=== PATIENT | female | born 1975 | race Caucasian/White ===

== ENCOUNTER 2017-07-29 07:14 | Emergency (ER) | payer BC ==
[2017-07-29 07:24] VITALS: BP 134/88
--- NOTE | 2017-07-29 09:19 | UC ---
Aly Sims Angela, scribed for Aide Macdonald MD on 07/29/17 at 0732 . General HPI - HPI Summary HPI Summary: This pt is a 42 y/o female presenting to [facility] c/o cough since yesterday. + fever. + nausea, no vomit. No diarrhea. no urine sx. No rash. + productive yellowish. Hx asthma, has used inhalers, but script ran out. + sick contact, etiology unk. Sx started rather suddenly. Did receive influenza vaccine in May 2017. Her temperature at home was 101 F. PMHx: asthma. Pt's PCP is Dr. Ammy Moseley from [facility]. - History of Current Complaint Chief Complaint: UCGeneralIllness Stated Complaint: COUGH, FEVER, CHILLS Time Seen by Provider: 07/29/17 07:17 Hx Obtained From: Patient Onset/Duration: Lasting Days - 1, Still Present Timing: Constant Associated Signs & Symptoms: Positive: Cough, Fever, Nausea, Other - POS: chills , rhinorrhea, body aches, right ear pain.. Negative: Diarrhea, Vomiting - Allergy/Home Medications Allergies/Adverse Reactions: Allergies Allergy/AdvReac Type Severity Reaction Status Date / Time No Known Allergies Allergy Verified 07/29/17 07:24 Home Medications: Home Medications Fluticasone HFA 220 mcg(NF) [Flovent Hfa 220 Mcg(NF)] 1 puff INH BID 07/29/17 [ History Confirmed 07/29/17] PMH/Surg Hx/FS Hx/Imm Hx Previously Healthy: Yes Other Endocrine History: DENIES: diabetes Respiratory History: Asthma - Surgical History Surgical History: Yes Surgery Procedure, Year, and Place: T&A, HYSTERECTOMY, TUBAL LIGATION, WISDOM TEETH - Family History Known Family History: Positive: Hypertension - Social History Occupation: Employed Full-time - as an aide in the hospital Alcohol Use: None Substance Use Type: None Smoking Status (MU): Never Smoked Tobacco Household Exposure Type: Cigarettes - Immunization History Most Recent Influenza Vaccination: 05/2017 Review of Systems Constitutional: Fever Skin: Negative Eyes: Negative ENT: Ear Ache - R ear itchy / burning Respiratory: Cough Cardiovascular: Negative Gastrointestinal: Nausea Genitourinary: Negative Motor: Negative Neurovascular: Negative Musculoskeletal: Other: - achy all over Neurological: Negative, Headache Psychological: Negative Is Patient Immunocompromised?: No All Other Systems Reviewed And Are Negative: Yes Physical Exam Triage Information Reviewed: Yes Appearance: Well-Nourished Vital Signs: Initial Vital Signs Temp 99.5 F 07/29/17 07:18 Pulse 95 07/29/17 07:18 Resp 18 07/29/17 07:18 BP 134/88 07/29/17 07:18 Pulse Ox 100 07/29/17 07:18 Vital Signs Reviewed: Yes Eye Exam: Normal ENT Exam: Normal ENT: Positive: Pharyngeal erythema - mild redness, uvula midline. No sores., TM dull - au dull bilat, intact. EAC's ok. Neck exam: Normal Neck: Positive: Supple, Nontender Respiratory: Positive: Chest non-tender, Normal breath sounds, No respiratory distress, No accessory muscle use, Wheezing - scattered exp wheeze infrequent + + rhonchorus cough Cardiovascular Exam: Normal Cardiovascular: Positive: RRR, No Murmur, Pulses Normal, Brisk Capillary Refill Abdominal Exam: Normal Abdomen Description: Positive: Nontender, No Organomegaly, Soft Bowel Sounds: Positive: Present Musculoskeletal Exam: Normal Musculoskeletal: Positive: Strength Intact Neurological Exam: Normal, Other - nonfocal, grossly intact Psychological Exam: Normal, Other - conversing easily and appropriately Skin Exam: Normal - no visible or reported rash Course/Dx - Course Course Of Treatment: Influenza NS -> neg. D/w pt. Reviewed coa / tx with pt. Consider viral, but given hx asthma / bronchitis, will start azithromycin. Rx albuterol inh. Rx re itchy ear (not infected). Work note written. Questions as posed answered to the best of my ability. - Differential Dx - Multi-Symptom Provider Diagnoses: Acute bronchitis with wheezing Discharge - Discharge Plan Condition: Stable Disposition: HOME Prescriptions: Albuterol HFA INHALER* [Ventolin HFA Inhaler*] 1 - 2 puff INH Q4H PRN #1 mdi PRN Reason: Wheezing Azithromyxin BRANDO (NF) [Z-Brando (Zithromax) 250 mg tabs #6] 2 tab PO .TODAY, THEN 1 DAILY #6 tab Neomyc/Polym/HC 1% OTIC SUSP* [Cortisporin Otic Susp 1%*] 4 drop RIGHT EAR TID # 1 btl Patient Education Materials: Acute Bronchitis (ED), Wheezing (ED) Forms: *Work Release Referrals: Ammy Moseley MD [Primary Care Provider] - Additional Instructions: Your blood pressure was elevated during today's visit, 134/88. Please follow up with your primary care provider in 1-2 weeks. Please follow up with your primary care provider in 1-2 weeks. Seek medical attention for worse or new problems in the meantime. Eat yogurt daily and / or probiotic while taking antibiotic. The documentation as recorded by the Aly eagle Angela accurately reflects the service I personally performed and the decisions made by me, Aide Macdonald MD.
== END 2017-07-29 08:35 | disposition home or self-care (01) ==
LOC: UCEAST 07:14
DX: J20.9 Acute bronchitis, unspecified (principal); R06.2 Wheezing; R11.0 Nausea; J45.909 Unspecified asthma, uncomplicated; H93.8X9 Other specified disorders of ear, unspecified ear
CPT/HCPCS: 87502; 99212; G0463

== ENCOUNTER 2018-05-11 14:33 | Emergency (ER) | payer BC ==
[2018-05-11 15:19] VITALS: BP 142/93
[2018-05-11] MEDS ORDERED: Albuterol 2.5 MG/3 ML NEB.SOL* (0.083%) INH ONE (15:43)
--- NOTE | 2018-05-11 15:48 | ED ---
Respiratory - HPI Summary HPI Summary: fever, cough last several days. cough productive of greenish sputum , positive shortness of breath and chest pain - History of Current Complaint Chief Complaint: UCRespiratory Stated Complaint: COUGH,CONGESTED Time Seen by Provider: 05/11/18 15:40 Hx Obtained From: Patient Onset/Duration: Sudden Onset Initial Severity: Moderate Current Severity: Moderate Pain Intensity: 0 Character: Wheezing Sputum Amount: Small Sputum Color: Green Aggravating Factor(s): Nothing Alleviating Factor(s): Nothing Associated Signs and Symptoms: Fever, Chills, Dyspnea - Risk Factors Status Asthmaticus Risk Factors: Negative - Allergy/Home Medications Allergies/Adverse Reactions: Allergies Allergy/AdvReac Type Severity Reaction Status Date / Time No Known Allergies Allergy Verified 05/11/18 15:20 Home Medications: Home Medications Ibuprofen TAB* [Motrin TAB* 600 MG] 600 mg PO Q6HR PRN 05/11/18 [History Confirmed 05/11/18] PMH/Surg Hx/FS Hx/Imm Hx Previously Healthy: Yes Endocrine/Hematology History: Denies: Hx Diabetes, Hx Thyroid Disease Cardiovascular History: Denies: Hx Hypertension Respiratory History: Reports: Hx Asthma Denies: Hx Chronic Obstructive Pulmonary Disease (COPD) GI History: Denies: Hx Ulcer - Cancer History Hx Chemotherapy: No Hx Radiation Therapy: No - Surgical History Surgery Procedure, Year, and Place: T&A, HYSTERECTOMY, TUBAL LIGATION, WISDOM TEETH Infectious Disease History: No Infectious Disease History: Denies: Hx Clostridium Difficile, Hx Hepatitis, Hx Human Immunodeficiency Virus (HIV), Hx of Known/Suspected MRSA, Hx Shingles, Hx Tuberculosis, Hx Known/ Suspected VRE, Hx Known/Suspected VRSA, History Other Infectious Disease, Traveled Outside the in Last 30 Days - Family History Known Family History: Positive: Hypertension - Social History Alcohol Use: None Substance Use Type: Reports: None Smoking Status (MU): Never Smoked Tobacco Review of Systems Positive: Fever ENT: Negative Cardiovascular: Negative Respiratory: Other - asthma Positive: Shortness Of Breath Gastrointestinal: Negative Genitourinary: Negative Musculoskeletal: Negative Skin: Negative Neurological: Negative Psychological: Normal All Other Systems Reviewed And Are Negative: Yes Physical Exam Triage Information Reviewed: Yes Vital Signs On Initial Exam: Initial Vitals Temp Pulse Resp BP Pulse Ox 38.1 C 59 16 142/93 98 05/11/18 15:15 05/11/18 15:15 10/10/18 15:15 05/11/18 15:15 05/11/18 15:15 Vital Signs Reviewed: Yes Appearance: Positive: Ill-Appearing Skin: Positive: Warm, Dry Head/Face: Positive: Normal Head/Face Inspection Eyes: Positive: Normal ENT: Positive: Normal ENT inspection Neck: Positive: Supple Respiratory/Lung Sounds: Positive: Clear to Auscultation Cardiovascular: Positive: Normal Abdomen Description: Positive: Nontender Musculoskeletal: Positive: Normal Neurological: Positive: Normal Diagnostics - Vital Signs Vital Signs Temp Pulse Resp BP Pulse Ox 05/11/18 15:15 38.1 C 59 16 142/93 98 - Laboratory Lab Statement: Any lab studies that have been ordered have been reviewed, and results considered in the medical decision making process. Disposition - Diagnoses Provider Diagnoses: Asthma Is Visit Related: No Discharge - Sign-Out/Discharge Documenting (check all that apply): Patient Departure All imaging exams completed and their final reports reviewed: Yes - Discharge Plan Condition: Good Disposition: HOME Prescriptions: Azithromycin TAB* [Zithromax TAB (Z-DAE) 250 mg #6 tabs] 2 tab PO .TODAY, THEN 1 DAILY 5 Days #1 dae Fluticasone-Salmeterol 250-50* [Advair Diskus 250-50*] 1 puff INH BID #1 diskus Patient Education Materials: Acute Bronchitis (ED) Referrals: Ammy Moseley MD [Primary Care Provider] - - Billing Disposition and Condition Condition: GOOD Disposition: Home
--- NOTE | 2018-05-11 16:04 | RAD ---
Indication: Cough, fever. 2 views of the chest including dual energy PA views demonstrate no mediastinal shift. Heart is of normal size and configuration. Lung olmos show no pleural fluid, pneumonia or pneumothorax. IMPRESSION: No active cardiopulmonary disease is noted.
== END 2018-05-11 16:29 | disposition home or self-care (01) ==
LOC: UCEAST 14:33
DX: J45.909 Unspecified asthma, uncomplicated (principal)
CPT/HCPCS: 71046; 99212; G0463

== ENCOUNTER 2019-03-01 20:07 | Emergency (ER) | payer BC ==
[2019-03-01 20:52] VITALS: BP 128/82
--- NOTE | 2019-03-01 21:43 | UC ---
Throat Pain/Nasal Neftaly HPI - HPI Summary HPI Summary: 44-year-old female presents with 2 day history of sore throat and swollen lymph nodes. Associated with fever, chills, nausea, and fatigue. Max temp of 103 F. Denies ear pain, nasal congestion, runny nose, cough, abdominal pain, or vomiting. - History of Current Complaint Chief Complaint: UCRespiratory Stated Complaint: SORE THROAT Time Seen by Provider: 03/01/19 21:32 Hx Obtained From: Patient Pain Intensity: 5 - Allergies/Home Medications Allergies/Adverse Reactions: Allergies Allergy/AdvReac Type Severity Reaction Status Date / Time No Known Allergies Allergy Verified 03/01/19 20:52 PMH/Surg Hx/FS Hx/Imm Hx Respiratory History: Asthma - Surgical History Surgical History: Yes Surgery Procedure, Year, and Place: T&A, HYSTERECTOMY, TUBAL LIGATION, WISDOM TEETH - Family History Known Family History: Positive: Hypertension - Social History Occupation: Employed Full-time Lives: Alone Alcohol Use: Occasionally Substance Use Type: None Smoking Status (MU): Never Smoked Tobacco Household Exposure Type: Cigarettes - Immunization History Most Recent Influenza Vaccination: 05/2017 Review of Systems All Other Systems Reviewed And Are Negative: Yes Constitutional: Positive: Fever, Chills, Fatigue Skin: Negative: Rash Eyes: Negative: Drainage, Eye Redness ENT: Positive: Sore Throat. Negative: Ear Ache, Nasal Discharge, Sinus Congestion, Sinus Pain/Tenderness Respiratory: Negative: Shortness Of Breath, Cough Cardiovascular: Negative: Palpitations, Chest Pain Gastrointestinal: Positive: Nausea. Negative: Abdominal Pain, Vomiting, Diarrhea Genitourinary: Positive: Negative Musculoskeletal: Positive: Negative Neurological: Positive: Negative Is Patient Immunocompromised?: No Physical Exam - Summary Physical Exam Summary: GENERAL APPEARANCE: Well developed, well nourished, alert and cooperative, and appears to be in no acute distress. EYES: Conjunctiva clear. No drainage. PERRL, EOM intact. Vision is grossly intact. EARS: External auditory canals and tympanic membranes clear, hearing grossly intact. NOSE: No nasal discharge. THROAT: Pharyngeal erythema. Tonsils surgically absent. Uvula midline. NECK: Neck supple. Mildly tender anterior and posterior cervical lymph nodes. CARDIAC: Normal S1 and S2. No S3, S4 or murmurs. Rhythm is regular. There is no peripheral edema, cyanosis or pallor. Extremities are warm and well perfused. Capillary refill is less than 2 seconds. Peripheral pulses intact. LUNGS: Clear to auscultation without rales, rhonchi, wheezing or diminished breath sounds. ABDOMEN: Positive bowel sounds. Soft, nondistended, nontender. No guarding or rebound. No masses or hepatosplenomegally. MUSKULOSKELETAL: ROM intact to all extremities. No joint erythema or tenderness. Normal muscular development. Normal gait. SKIN: Skin normal color, texture and turgor with no lesions or eruptions. Triage Information Reviewed: Yes Vital Signs: Initial Vital Signs Temp 99.0 F 03/01/19 20:50 Pulse 107 03/01/19 20:50 Resp 16 03/01/19 20:50 BP 128/82 03/01/19 20:50 Pulse Ox 100 03/01/19 20:50 Vital Signs Reviewed: Yes Throat Pain/Nasal Course/Dx - Course Course Of Treatment: 44-year-old female presents with 2 day history of sore throat and swollen lymph nodes. Associated with fever, chills, nausea, and fatigue. Max temp of 103 F. Denies ear pain, nasal congestion, runny nose, cough, abdominal pain, or vomiting. Afebrile. Mildly tachycardic otherwise vital signs stable. Patient had pharyngeal erythema with surgically absent tonsils, anterior and posterior cervical lymphadenopathy, and otherwise unremarkable exam. Rapid strep test was negative. Discussed with the patient that with the posterior cervical lymphadenopathy there is a chance that her symptoms could be an infectious mononucleosis however with the short duration of her symptoms testing would unlikely show this even if she received had mono therefore it was furred at this time. Recommending symptomatic treatment for viral pharyngitis. She is to follow-up with her primary care provider in 3-5 days if symptoms are not improving. Anticipatory guidance and warning symptoms were reviewed with the patient. Verbalizes understanding and agrees with plan of care. - Differential Dx/Diagnosis Differential Diagnosis/HQI/PQRI: Mononucleosis, Pharyngitis, Tonsillitis, URI Provider Diagnosis: Viral pharyngitis Discharge - Sign-Out/Discharge Documenting (check all that apply): Patient Departure All imaging exams completed and their final reports reviewed: No Studies - Discharge Plan Condition: Stable Disposition: HOME Patient Education Materials: Pharyngitis (ED) Referrals: Ammy Moseley MD [Primary Care Provider] - 3 Days Additional Instructions: Your rapid strep test in the clinic today was negative. Your symptoms are likely from a viral infection. Viral infections do not respond to antibiotics and are limited to the treatment of symptoms. Viral infections typically run their course in 7-10 days. Drink plenty of fluids to avoid dehydration especially if you are running any fever. Use salt water gargles several times a day. Take over the counter acetaminophen (Tylenol) or ibuprofen (Advil, Motrin) according to directions as needed for pain or fever. You may also use Chloraseptic spray or Cepacol lonzenges according to directions which contain a numbing medication and can provide some temporary relief from your sore throat. Return here or follow up with your primary care provider in 3-5 days if symptoms persist. Seek immediate medical attention in the emergency room if you have fever greater than 100.5 F despite taking acetaminophen or ibuprofen, are unable to swallow or develop drooling, are unable to open your mouth fully, are unable to eat or drink, have pain that is not relieved with over the counter pain medication, have any difficulty breathing, or any worsening of symptoms. - Billing Disposition and Condition Condition: STABLE Disposition: Home
== END 2019-03-01 21:55 | disposition home or self-care (01) ==
LOC: UCEAST 20:07
DX: J02.8 Acute pharyngitis due to other specified organisms (principal)
CPT/HCPCS: 87651; 99211; G0463

== ENCOUNTER 2019-03-03 23:07 | Emergency (ER) | payer BC ==
[2019-03-03] MEDS ORDERED: Lidocaine 2% VISCOUS* 15 ML UDC PO ONE (23:43)
[2019-03-03] MEDS ORDERED: Ibuprofen TAB* 600 MG PO ONE (23:43)
--- NOTE | 2019-03-04 00:39 | ED ---
Throat Pain/Nasal Congestion - HPI Summary HPI Summary: 44-year-old female presents with sore throat for the past week. States that she had a negative strep a couple days ago. She states that her fever and sore throat continue. Had a tonsillectomy due to strep in the past. Denies any bowel pain. No nausea or vomiting. she admits to some sinus congestion. No postnasal drip. Has been taking Tylenol for her fever. Has history of asthma. - History of Current Complaint Chief Complaint: EDThroatPain Time Seen by Provider: 03/03/19 23:30 - Allergies/Home Medications Allergies/Adverse Reactions: Allergies Allergy/AdvReac Type Severity Reaction Status Date / Time No Known Allergies Allergy Verified 03/01/19 20:52 PMH/Surg Hx/FS Hx/Imm Hx Endocrine/Hematology History: Denies: Hx Diabetes, Hx Thyroid Disease Cardiovascular History: Denies: Hx Hypertension Respiratory History: Reports: Hx Asthma Denies: Hx Chronic Obstructive Pulmonary Disease (COPD) GI History: Denies: Hx Ulcer - Cancer History Hx Chemotherapy: No Hx Radiation Therapy: No - Surgical History Surgery Procedure, Year, and Place: T&A, HYSTERECTOMY, TUBAL LIGATION, WISDOM TEETH Infectious Disease History: No Infectious Disease History: Denies: Hx Clostridium Difficile, Hx Hepatitis, Hx Human Immunodeficiency Virus (HIV), Hx of Known/Suspected MRSA, Hx Shingles, Hx Tuberculosis, Hx Known/ Suspected VRE, Hx Known/Suspected VRSA, History Other Infectious Disease, Traveled Outside the [place] in Last 30 Days - Family History Known Family History: Positive: Hypertension - Social History Alcohol Use: Occasionally Substance Use Type: Reports: None Smoking Status (MU): Never Smoked Tobacco Review of Systems Positive: Fever Positive: Sore Throat Negative: Chest Pain Negative: Shortness Of Breath All Other Systems Reviewed And Are Negative: Yes Physical Exam Triage Information Reviewed: Yes Vital Signs On Initial Exam: Initial Vitals Temp Pulse Resp BP Pulse Ox 98.9 F 112 18 167/100 98 03/03/19 23:09 03/03/19 23:09 03/03/19 23:09 03/03/19 23:09 03/03/19 23:09 Vital Signs Reviewed: Yes Appearance: Positive: Well-Appearing Skin: Positive: Warm, Dry Head/Face: Positive: Normal Head/Face Inspection Eyes: Positive: Normal, EOMI, CAROLYN, Conjunctiva Clear ENT: Positive: Pharyngeal erythema, TMs normal, Other - soft palate symmetric, no tonsils present Neck: Positive: Tenderness @ - cervical, Enlarged Nodes @ - cervical Respiratory/Lung Sounds: Positive: Clear to Auscultation, Breath Sounds Present Cardiovascular: Positive: Normal, RRR Musculoskeletal: Positive: Normal Neurological: Positive: Normal Psychiatric: Positive: Normal Diagnostics - Vital Signs Vital Signs Temp Pulse Resp BP Pulse Ox 03/03/19 23:09 98.9 F 112 18 167/100 98 - Laboratory Lab Statement: Any lab studies that have been ordered have been reviewed, and results considered in the medical decision making process. EENT Course/Dx - Course Course Of Treatment: 44-year-old female presents with sore throat for the past week. States that she had a negative strep a couple days ago. She states that her fever and sore throat continue. Had a tonsillectomy due to strep in the past. Denies any bowel pain. No nausea or vomiting. she admits to some sinus congestion. No postnasal drip. Has been taking Tylenol for her fever. Has history of asthma. On exam pharynx erythematous. Soft palate symmetric. Uvula midline. No tonsils present. tender and enlarged lymph node cervical. Tift is negative. got throat culture. Will treat for pharyngitis with Decadron. Patient understands agrees with plan. - Differential Diagnoses Differential Diagnoses: Pharyngitis, Sinusitis, URI/Bronchitis - Diagnoses Provider Diagnoses: Pharyngitis Discharge - Sign-Out/Discharge Documenting (check all that apply): Patient Departure Patient Received Moderate/Deep Sedation with Procedure: No - Discharge Plan Condition: Good Disposition: HOME Prescriptions: Dexamethasone TAB* [Decadron TAB*] 4 mg PO DAILY #4 tab Patient Education Materials: Pharyngitis (ED) Forms: *Work Release Referrals: Ammy Moseley MD [Primary Care Provider] - Additional Instructions: Take steroid once a day for 5 days, first dose given in ED Take Tylenol or ibuprofen for pain every 6 hours Use saline spray in nose as much as needed for nasal congestion Can gargle salt water Can use cough drops or products such as cloraseptic spray Follow up with primary Return to ED if develop any new or worsening symptoms - Billing Disposition and Condition Condition: GOOD Disposition: Home
[2019-03-04] MEDS ORDERED: Dexamethasone TAB* 4 MG PO ONE (01:34)
[2019-03-04 02:46] VITALS: BP 137/103
[2019-03-07 12:13] LABS: EBV Capsid Ag IgG Ab Positive (Negative); EBV Capsid Ag IgM Ab Positive (Negative); Epstein-Barr Nuclear Antigen Positive (Negative)
== END 2019-03-04 01:37 | disposition home or self-care (01) ==
LOC: ED 23:07
DX: J02.9 Acute pharyngitis, unspecified (principal); R50.9 Fever, unspecified; R09.81 Nasal congestion
CPT/HCPCS: 36415; 86308; 86664; 86665; 87070; 99282; A9270-GY; J8540